=== PATIENT | male | born 1980 | race African-American/Black ===

== ENCOUNTER 2017-04-26 02:05 | Emergency (ER) | payer OTHER ==
[~2017-04-26] VITALS: Ht 190.5 cm; Wt 78.8 kg
[~2017-04-26 02:05] MED LIST: DEXAMETHASONE2 MG PO; NAPROSYN500 MG PO; PRILOSEC20 MG PO; TORADOL10 MG PO; ULTRAM50 MG PO
[2017-04-26 04:25] LABS: HEMATOCRIT 39.9 % (38.0-50.0); MCH 30.5 PG (29.0-34.0); MCHC 32.8 G/DL (30.0-36.0); MEAN PLAT.VOLUME 9.2 uM^3 (9.0-12.4); PLATELET COUNT 318 K/uL (156-360); RBC DIS.WIDTH-CV 13.8 % (11.8-14.6); RED BLOOD COUNT 4.29 M/uL (4.00-5.50); WHITE BLOOD COUNT 8.8 K/uL (4.1-10.2)
[2017-04-26 04:34] LABS: CHLORIDE 107 mEq/L (99-109); SODIUM 142 mEq/L (136-147)
[2017-04-26] MEDS ORDERED: NARCAN4 MG NS (04:35)
[2017-04-26 04:37] LABS: GLUCOSE 98 mg/dL (70-99)
[2017-04-26 04:38] LABS: ANION GAP 5 MEQ/L (2-14); TOTAL BILIRUBIN 0.5 mg/dL (0.0-1.0)
[2017-04-26 04:39] LABS: SERUM ETHYL ALCOHOL < 10 mg/dL
[2017-04-26 04:40] LABS: ALKALINE PHOSPHATASE 57 IU/L (3-129); GFR ESTIMATE (CALCULATED) > 59 mL/min/
[2017-04-26 04:41] LABS: UREA NITROGEN (BUN) 7 mg/dL (9-23)
[2017-04-26 04:51] VITALS: BP 121/79
== END 2017-04-26 04:57 | disposition home or self-care (01) ==
LOC: EME 02:05
PROVIDERS: Emergency Medicine
DX: T40.1X1A Poisoning by heroin, accidental (unintentional), initial encounter (principal); R09.02 Hypoxemia; F17.200 Nicotine dependence, unspecified, uncomplicated
CPT/HCPCS: 80053; 81003; 85027; 90839; 99281; 99285; G0480; J2310; J7030

== ENCOUNTER 2017-04-29 15:37 | Emergency (ER) | payer OTHER ==
[~2017-04-29] VITALS: Ht 190.5 cm; Wt 76.0 kg
[~2017-04-29 15:37] MED LIST changes: +NARCAN4 MG NS
[2017-04-29 15:56] VITALS: BP 104/74
== END 2017-04-29 20:07 | disposition left against medical advice (07) ==
LOC: EME 15:37
DX: F11.23 Opioid dependence with withdrawal (principal); Z53.21 Procedure and treatment not carried out due to patient leaving prior to being seen by health care provider